=== PATIENT | female | born 1970 | race Caucasian/White ===

== ENCOUNTER 2019-10-12 13:49 | Emergency (ER) | payer OTHER ==
[~2019-10-12] VITALS: Wt 90.7 kg
[2019-10-12 15:11] LABS: BASO % 0.3 % (0.0-1.0); EOS # 0.2 10*3/uL (0.0-0.4); EOS % 1.8 % (1.0-4.0); HEMATOCRIT 40.1 % (37.0-47.0); LYMPH # 2.3 10*3/uL (1.3-4.4); LYMPH % 25.8 % (27.0-41.0); MEAN CELL VOLUME 96.6 fl (81.0-99.0); MEAN CORPUSCULAR HGB CONC 33.2 g/dl (33.0-37.0); MEAN PLATELET VOLUME 9.4 fl (9.6-12.3); MONO # 0.9 10*3/uL (0.1-1.0); MONO % 10.8 % (3.0-9.0); NEUT # 5.3 10*3/uL (2.3-7.9); NEUT % 60.8 % (47.0-73.0); PLATELET COUNT AUTOMATED 286 10*3/uL (130-400); RED BLOOD COUNT 4.15 10*6/uL (4.10-5.10); RED CELL DISTRI WIDTH 13.8 % (0-14.5); WHITE BLOOD COUNT 8.7 10*3/uL (4.8-10.8)
[2019-10-12 15:28] LABS: ALBUMIN 3.3 gm/dl (3.1-4.5); ALKALINE PHOSPHATASE 83 U/L (45-117); BUN 10 mg/dl (7-24); CHLORIDE 106 mmol/L (98-107); CPK 718 U/L (26-192); CREATININE 0.79 mg/dL (0.55-1.02); POTASSIUM 3.9 mmol/L (3.5-5.1); SGOT/AST 33 IU/L (3-35); SGPT/ALT 20 U/L (12-78); SODIUM 137 mmol/L (136-145)
[2019-10-12 15:30] LABS: ACT PARTIAL THROMBO TIME 26.8 SECONDS (20.0-32.1); INTERNATIONAL NORM RATIO 0.9 (2.0-3.5)
[2019-10-12 15:31] LABS: TROPONIN I < 0.015 ng/ml (<0.045)
[2019-10-12 16:28] LABS: BILIRUBIN NEGATIVE (NEGATIVE); BLOOD NEGATIVE (NEGATIVE); CLARITY CLEAR (CLEAR); COLOR YELLOW (YELLOW); GLUCOSE NEGATIVE (NEGATIVE); KETONE NEGATIVE (NEGATIVE); LEUKO ESTERASE NEGATIVE (NEGATIVE); NITRITE NEGATIVE (NEGATIVE); RBC 0-2 rbc/hpf (0-2); SPECIFIC GRAVITY 1.015 (1.005-1.030); UROBILINOGEN 0.2 E.U./dl (0.2-1.0)
[2019-10-12 16:29] LABS: BACTERIA 1+; EPITHELIAL CELLS 41-50
[2019-10-12] MEDS ORDERED: NAPROSYN500 MG PO (19:02)
[2019-10-12] MEDS ORDERED: TYLENOL325 M1 PO (19:02)
[2019-10-12] MEDS ORDERED: ULTRAM50 MG PO (19:02)
[2019-10-12] MEDS ORDERED: POLYSPORIN OINT15 GM T (19:03)
== END 2019-10-12 19:35 | disposition home or self-care (01) ==
LOC: ED 13:49
PROVIDERS: Emergency Medicine
DX: S40.812A Abrasion of left upper arm, initial encounter (principal); S30.811A Abrasion of abdominal wall, initial encounter; S70.212A Abrasion, left hip, initial encounter; S80.212A Abrasion, left knee, initial encounter; T14.8XXA Other injury of unspecified body region, initial encounter; M54.2 Cervicalgia; R07.89 Other chest pain; Z91.040 Latex allergy status; V86.59XA Driver of other special all-terrain or other off-road motor vehicle injured in nontraffic accident, initial encounter; Y93.89 Activity, other specified; Y92.89 Other specified places as the place of occurrence of the external cause; Y99.8 Other external cause status

== ENCOUNTER → 2019-12-31 | Outpatient (CLI) | payer OTHER ==
[~2019-12-31] MED LIST: NAPROSYN500 MG PO; POLYSPORIN OINT15 GM T; TYLENOL325 M1 PO; ULTRAM50 MG PO
== END | disposition home or self-care (01) ==
LOC: LAB 14:12
PROVIDERS: ATTEND Nurse Practitioner
DX: R63.5 Abnormal weight gain (principal); R53.83 Other fatigue; M25.50 Pain in unspecified joint

== ENCOUNTER 2021-12-21 07:44 | Emergency (ER) | payer OTHER ==
[~2021-12-21] VITALS: Ht 236.2 cm; Wt 113.4 kg
[2021-12-21] MEDS ORDERED: ONDANSETRON4 MG SL (10:34)
[2021-12-21] MEDS ORDERED: PREDNISONE50 MG PO (10:34)
== END 2021-12-21 11:05 | disposition home or self-care (01) ==
LOC: ED 07:44
DX: M54.42 Lumbago with sciatica, left side (principal); R51.9 Headache, unspecified; Z79.899 Other long term (current) drug therapy; Z79.2 Long term (current) use of antibiotics; Z98.890 Other specified postprocedural states

== ENCOUNTER 2022-04-13 02:30 | Emergency (ER) | payer OTHER ==
[~2022-04-13] VITALS: Ht 162.5 cm; Wt 108.9 kg
[~2022-04-13 02:30] MED LIST changes: +ALDACTONE25 M1 PO; +ATENOLOL25 MG PO; +HYDROCHLOROTHIA25 M1 PO; +K-TAB20 MEQ PO; +LASIX40 MG PO; +LOW DOSE ASPIRI81 M1 PO; +NORVASC10 MG PO; +OMEPRAZOLE10 MG PO; +ONDANSETRON4 MG SL; +PREDNISONE10 MG PO; +PREDNISONE50 MG PO; +PROTONIX40 MG PO; +SERTRALINE HYDR25 MG PO; +XANAX0.25 MG PO
[2022-04-13 03:11] LABS: BASO % 0.3 % (0.0-1.0); EOS % 0.1 % (1.0-4.0); HEMATOCRIT 39.4 % (37.0-47.0); LYMPH # 4.7 10*3/uL (1.3-4.4); LYMPH % 44.3 % (27.0-41.0); MEAN CORPUSCULAR HGB 33.7 pg (27.0-31.0); MEAN PLATELET VOLUME 10.6 fl (9.6-12.3); MONO # 0.6 10*3/uL (0.1-1.0); MONO % 5.4 % (3.0-9.0); NEUT # 5.2 10*3/uL (2.3-7.9); NEUT % 49.2 % (47.0-73.0); PLATELET COUNT AUTOMATED 258 10*3/uL (130-400); RED BLOOD COUNT 3.98 10*6/uL (4.10-5.10); RED CELL DISTRI WIDTH 15.1 % (0-14.5); WHITE BLOOD COUNT 10.5 10*3/uL (4.8-10.8)
[2022-04-13 03:29] LABS: ALKALINE PHOSPHATASE 105 U/L (46-116); BUN 10 mg/dl (9-23); CHLORIDE 99 mmol/L (98-107); CREATININE 0.81 mg/dL (0.55-1.02); POTASSIUM 3.5 mmol/L (3.4-5.1); SGPT/ALT 21 U/L (10-49); TOTAL PROTEIN 7.8 gm/dL (6.0-8.0)
[2022-04-13] MEDS ORDERED: ZITHROMAX250 MG PO (04:46)
[2022-04-13] MEDS ORDERED: PREDNISONE20 M1 PO (04:46)
== END 2022-04-13 05:05 | disposition home or self-care (01) ==
LOC: ED 02:30
PROVIDERS: Internal Medicine
DX: J06.9 Acute upper respiratory infection, unspecified (principal); Z20.822 Contact with and (suspected) exposure to COVID-19; J20.8 Acute bronchitis due to other specified organisms; Z79.899 Other long term (current) drug therapy; Z79.82 Long term (current) use of aspirin; Z90.49 Acquired absence of other specified parts of digestive tract; Z98.890 Other specified postprocedural states; F17.200 Nicotine dependence, unspecified, uncomplicated

== ENCOUNTER → 2022-04-18 | Outpatient (CLI) | payer OTHER ==
[~2022-04-18] MED LIST changes: +PREDNISONE20 M1 PO; +ZITHROMAX250 MG PO
== END | disposition home or self-care (01) ==
LOC: RESCLI 14:25
PROVIDERS: ATTEND Internal Medicine
DX: I11.0 Hypertensive heart disease with heart failure (principal); I50.30 Unspecified diastolic (congestive) heart failure; F41.1 Generalized anxiety disorder; K21.9 Gastro-esophageal reflux disease without esophagitis; G47.33 Obstructive sleep apnea (adult) (pediatric); F32.1 Major depressive disorder, single episode, moderate; Z90.49 Acquired absence of other specified parts of digestive tract; Z98.890 Other specified postprocedural states; F17.200 Nicotine dependence, unspecified, uncomplicated; Z79.82 Long term (current) use of aspirin; Z79.899 Other long term (current) drug therapy

== ENCOUNTER → 2022-05-30 | Outpatient (CLI) | payer OTHER ==
[2022-05-30 16:26] LABS: BASO # 0.1 10*3/uL (0.0-0.1); BASO % 0.6 % (0.0-1.0); EOS # 0.3 10*3/uL (0.0-0.4); EOS % 2.8 % (1.0-4.0); HEMATOCRIT 42.5 % (37.0-47.0); LYMPH # 2.5 10*3/uL (1.3-4.4); LYMPH % 28.5 % (27.0-41.0); MEAN CELL VOLUME 97.9 fl (81.0-99.0); MEAN CORPUSCULAR HGB 32.9 pg (27.0-31.0); MEAN CORPUSCULAR HGB CONC 33.6 g/dl (33.0-37.0); MEAN PLATELET VOLUME 9.7 fl (9.6-12.3); MONO # 0.7 10*3/uL (0.1-1.0); MONO % 7.5 % (3.0-9.0); NEUT # 5.3 10*3/uL (2.3-7.9); NEUT % 60.3 % (47.0-73.0); PLATELET COUNT AUTOMATED 326 10*3/uL (130-400); RED BLOOD COUNT 4.34 10*6/uL (4.10-5.10); RED CELL DISTRI WIDTH 14.6 % (0-14.5); WHITE BLOOD COUNT 8.9 10*3/uL (4.8-10.8)
[2022-05-30 16:40] LABS: BUN 10 mg/dl (9-23); CHLORIDE 101 mmol/L (98-107); POTASSIUM 3.8 mmol/L (3.4-5.1)
[2022-05-30 16:45] LABS: ALKALINE PHOSPHATASE 105 U/L (46-116); BUN 9 mg/dl (9-23); CHLORIDE 102 mmol/L (98-107); POTASSIUM 3.9 mmol/L (3.4-5.1); SGPT/ALT 12 U/L (10-49); THYROID STIM HORMONE (HS) 2.211 uIU/ml (0.550-4.780); TOTAL PROTEIN 8.1 gm/dL (6.0-8.0)
== END | disposition home or self-care (01) ==
LOC: RESCLI 01:27
PROVIDERS: Internal Medicine; ATTEND Internal Medicine
DX: M47.816 Spondylosis without myelopathy or radiculopathy, lumbar region (principal); M48.061 Spinal stenosis, lumbar region without neurogenic claudication; M54.32 Sciatica, left side; F32.1 Major depressive disorder, single episode, moderate; R10.11 Right upper quadrant pain; I11.0 Hypertensive heart disease with heart failure; I50.30 Unspecified diastolic (congestive) heart failure; F41.9 Anxiety disorder, unspecified; F32.A Depression, unspecified; F10.90 Alcohol use, unspecified, uncomplicated; F17.210 Nicotine dependence, cigarettes, uncomplicated; M25.78 Osteophyte, vertebrae; K21.9 Gastro-esophageal reflux disease without esophagitis; Z90.49 Acquired absence of other specified parts of digestive tract; Z98.890 Other specified postprocedural states; Z79.899 Other long term (current) drug therapy

== ENCOUNTER → 2022-07-03 | Outpatient (CLI) | payer OTHER | END | disposition home or self-care (01) | LOC: RESCLI 14:51 | PROVIDERS: ATTEND Internal Medicine | DX: I11.0 Hypertensive heart disease with heart failure (principal); I50.30 Unspecified diastolic (congestive) heart failure; M54.32 Sciatica, left side; R42 Dizziness and giddiness; F32.1 Major depressive disorder, single episode, moderate; K21.9 Gastro-esophageal reflux disease without esophagitis; F17.200 Nicotine dependence, unspecified, uncomplicated; F10.90 Alcohol use, unspecified, uncomplicated; Z90.49 Acquired absence of other specified parts of digestive tract; Z98.890 Other specified postprocedural states; Z79.82 Long term (current) use of aspirin; Z79.899 Other long term (current) drug therapy ==

== ENCOUNTER → 2022-08-29 | Outpatient (CLI) | payer OTHER | END | disposition home or self-care (01) | LOC: RESCLI 01:15 | PROVIDERS: ATTEND Internal Medicine | DX: I11.0 Hypertensive heart disease with heart failure (principal); I50.30 Unspecified diastolic (congestive) heart failure; K21.9 Gastro-esophageal reflux disease without esophagitis; R11.0 Nausea; M54.32 Sciatica, left side; F32.1 Major depressive disorder, single episode, moderate; M53.86 Other specified dorsopathies, lumbar region; F17.210 Nicotine dependence, cigarettes, uncomplicated; Z98.890 Other specified postprocedural states; F10.90 Alcohol use, unspecified, uncomplicated; Z88.8 Allergy status to other drugs, medicaments and biological substances; Z79.899 Other long term (current) drug therapy ==

== ENCOUNTER 2023-01-18 13:27 | Emergency (ER) | payer OTHER ==
[~2023-01-18] VITALS: Wt 122.5 kg
[2023-01-18] MEDS ORDERED: PERCOCET 5-3251 EACH PO (15:54)
== END 2023-01-18 15:57 | disposition home or self-care (01) ==
LOC: ED 13:27
DX: S70.01XA Contusion of right hip, initial encounter (principal); I11.0 Hypertensive heart disease with heart failure; I50.9 Heart failure, unspecified; Z90.49 Acquired absence of other specified parts of digestive tract; Z98.890 Other specified postprocedural states; F17.200 Nicotine dependence, unspecified, uncomplicated; W01.0XXA Fall on same level from slipping, tripping and stumbling without subsequent striking against object, initial encounter; Y93.89 Activity, other specified; Y92.89 Other specified places as the place of occurrence of the external cause; Y99.8 Other external cause status

== ENCOUNTER 2023-01-21 14:16 | Emergency (ER) | payer OTHER ==
[~2023-01-21] VITALS: Ht 160 cm; Wt 117.9 kg
[~2023-01-21 14:16] MED LIST changes: +PERCOCET 5-3251 EACH PO
[2023-01-21] MEDS ORDERED: AUVELITY ER 451 EACH PO (14:25)
[2023-01-21] MEDS ORDERED: FUROSEMIDE40 MG PO (14:27)
[2023-01-21] MEDS ORDERED: GABAPENTIN600 MG PO (14:29)
[2023-01-21] MEDS ORDERED: METHOCARBAMOL750 M1 PO (14:29)
[2023-01-21] MEDS ORDERED: MECLIZINE HYD12.5 MG PO (14:30)
[2023-01-21] MEDS ORDERED: TRAMADOL HCL50 MG PO (15:49)
== END 2023-01-21 15:54 | disposition home or self-care (01) ==
LOC: ED 14:16
DX: S70.01XA Contusion of right hip, initial encounter (principal); I11.0 Hypertensive heart disease with heart failure; I50.9 Heart failure, unspecified; Z90.49 Acquired absence of other specified parts of digestive tract; Z98.890 Other specified postprocedural states; F17.200 Nicotine dependence, unspecified, uncomplicated; W01.0XXA Fall on same level from slipping, tripping and stumbling without subsequent striking against object, initial encounter; Y93.89 Activity, other specified; Y92.89 Other specified places as the place of occurrence of the external cause; Y99.8 Other external cause status

== ENCOUNTER → 2023-02-15 | Outpatient (CLI) | payer OTHER ==
[~2023-02-15] MED LIST changes: +AUVELITY ER 451 EACH PO; +FUROSEMIDE40 MG PO; +GABAPENTIN600 MG PO; +HORIZANT600 M1 PO; +MECLIZINE HYD12.5 MG PO; +METHOCARBAMOL750 M1 PO; +OXYCODONE-ACET1 EACH PO; +Oscal,Oyster S500 MG PO; +TRAMADOL HCL50 MG PO; +VITAMIN D350 MCG PO
== END | disposition home or self-care (01) ==
LOC: ORTHO 00:44
PROVIDERS: ATTEND Orthopaedic Surgery
DX: M84.359D Stress fracture, hip, unspecified, subsequent encounter for fracture with routine healing (principal)

== ENCOUNTER → 2023-02-18 | Outpatient (CLI) | payer OTHER | END | disposition home or self-care (01) | LOC: ORTHO 08:03 | PROVIDERS: ATTEND Orthopaedic Surgery | DX: M19.011 Primary osteoarthritis, right shoulder (principal) ==

== ENCOUNTER → 2023-03-15 | Outpatient (CLI) | payer OTHER | END | disposition home or self-care (01) | LOC: ORTHO 03:28 | PROVIDERS: ATTEND Orthopaedic Surgery | DX: S72.141D Displaced intertrochanteric fracture of right femur, subsequent encounter for closed fracture with routine healing (principal); X58.XXXD Exposure to other specified factors, subsequent encounter ==

== ENCOUNTER → 2023-04-01 | Outpatient (CLI) | payer OTHER | END | disposition home or self-care (01) | LOC: ORTHO 04:26 | PROVIDERS: ATTEND Orthopaedic Surgery | DX: M84.351D Stress fracture, right femur, subsequent encounter for fracture with routine healing (principal) ==

== ENCOUNTER 2023-04-16 08:17 | Emergency (ER) | payer OTHER ==
[~2023-04-16] VITALS: Ht 160 cm; Wt 113.4 kg
[2023-04-16] MEDS ORDERED: CEPHALEXIN500 M1 PO (12:52)
[2023-04-16] MEDS ORDERED: SEPTDS PO (12:52)
[2023-04-16] MEDS ORDERED: HYDROCODONE-AC1 EAC1 PO (12:53)
== END 2023-04-16 12:55 | disposition home or self-care (01) ==
LOC: ED 08:17
DX: L02.412 Cutaneous abscess of left axilla (principal); F17.210 Nicotine dependence, cigarettes, uncomplicated; Z79.899 Other long term (current) drug therapy; Z79.82 Long term (current) use of aspirin; Z98.51 Tubal ligation status; Z90.49 Acquired absence of other specified parts of digestive tract

== ENCOUNTER → 2023-05-08 | Outpatient (CLI) | payer OTHER ==
[~2023-05-08] MED LIST changes: +CEPHALEXIN500 M1 PO; +HYDROCODONE-AC1 EAC1 PO; +SEPTDS PO
== END | disposition home or self-care (01) ==
LOC: ORTHO 01:21
PROVIDERS: ATTEND Orthopaedic Surgery
DX: M84.35 Stress fracture, pelvis and femur (principal); M25.862 Other specified joint disorders, left knee; X58.XXXD Exposure to other specified factors, subsequent encounter

== ENCOUNTER → 2023-05-17 | Outpatient (CLI) | payer OTHER ==
[~2023-05-17] MED LIST changes: +Technetium Tc 99M Medronate 1 KIT KIT IV SCH
== END | disposition home or self-care (01) ==
LOC: NM 00:31
PROVIDERS: ATTEND Orthopaedic Surgery
DX: M84.352A Stress fracture, left femur, initial encounter for fracture (principal); M81.0 Age-related osteoporosis without current pathological fracture; I10 Essential (primary) hypertension; K58.9 Irritable bowel syndrome, unspecified; X58.XXXA Exposure to other specified factors, initial encounter; Y93.89 Activity, other specified; Y92.89 Other specified places as the place of occurrence of the external cause; Y99.8 Other external cause status

== ENCOUNTER 2023-11-17 17:29 | Emergency (ER) | payer OTHER ==
[~2023-11-17] VITALS: Ht 160 cm; Wt 133.8 kg
[~2023-11-17 17:29] MED LIST changes: -Technetium Tc 99M Medronate 1 KIT KIT IV SCH
[2023-11-17] MEDS ORDERED: Ondansetron Hydrochloride 4 MG/2 ML VIAL IV ONE (17:35)
[2023-11-17] MEDS ORDERED: MORPHINE Sulfate 2 MG/ML SYR IV ONE (17:35)
[2023-11-17] MEDS ORDERED: Meclizine Hydrochloride 25 MG TAB PO ONE (17:35)
[2023-11-17 17:49] LABS: BASO # 0.1 10*3/uL (0.0-0.1); BASO % 0.5 % (0.0-1.0); EOS # 0.2 10*3/uL (0.0-0.4); EOS % 1.6 % (1.0-4.0); HEMATOCRIT 37.2 % (37.0-47.0); LYMPH # 3.6 10*3/uL (1.3-4.4); LYMPH % 31.5 % (27.0-41.0); MEAN CELL VOLUME 96.6 fl (81.0-99.0); MEAN CORPUSCULAR HGB 32.5 pg (27.0-31.0); MEAN CORPUSCULAR HGB CONC 33.6 g/dl (33.0-37.0); MEAN PLATELET VOLUME 9.4 fl (9.6-12.3); MONO % 8.8 % (3.0-9.0); NEUT # 6.6 10*3/uL (2.3-7.9); NEUT % 56.8 % (47.0-73.0); PLATELET COUNT AUTOMATED 279 10*3/uL (130-400); RED BLOOD COUNT 3.85 10*6/uL (4.10-5.10); RED CELL DISTRI WIDTH 16.4 % (0-14.5); WHITE BLOOD COUNT 11.5 10*3/uL (4.8-10.8)
[2023-11-17 18:03] LABS: POTASSIUM 3.3 mmol/L (3.4-5.1)
[2023-11-17] MEDS ORDERED: SODIUM CHLORIDE 0.9% 500 ML IV ONE (18:10)
[2023-11-17] MEDS ORDERED: POTASSIUM CHLORIDE 20 MEQ TAB PO ONE (18:30)
== END 2023-11-17 18:32 | disposition home or self-care (01) ==
LOC: ED 17:29
PROVIDERS: Emergency Medicine
DX: R55 Syncope and collapse (principal); M25.512 Pain in left shoulder; M54.2 Cervicalgia; E86.0 Dehydration; E87.6 Hypokalemia; R42 Dizziness and giddiness; I11.0 Hypertensive heart disease with heart failure; I50.9 Heart failure, unspecified; E78.5 Hyperlipidemia, unspecified; F32.A Depression, unspecified; F17.210 Nicotine dependence, cigarettes, uncomplicated; Z90.49 Acquired absence of other specified parts of digestive tract; Z98.51 Tubal ligation status; Z98.890 Other specified postprocedural states

== ENCOUNTER 2023-12-01 07:14 | Emergency (ER) | payer OTHER ==
[~2023-12-01] VITALS: Ht 160 cm; Wt 136.1 kg
[2023-12-01] MEDS ORDERED: PREDNISONE20 M1 PO (08:31)
== END 2023-12-01 08:37 | disposition home or self-care (01) ==
LOC: ED 07:14
DX: M54.42 Lumbago with sciatica, left side (principal); M79.605 Pain in left leg; J44.9 Chronic obstructive pulmonary disease, unspecified; I11.0 Hypertensive heart disease with heart failure; I50.9 Heart failure, unspecified; F32.A Depression, unspecified; F17.200 Nicotine dependence, unspecified, uncomplicated; Z90.49 Acquired absence of other specified parts of digestive tract; Z98.51 Tubal ligation status; Z98.890 Other specified postprocedural states

== ENCOUNTER 2024-12-15 10:50 | Emergency (ER) | payer OTHER ==
[2024-12-15] MEDS ORDERED: PREDNISONE20 M1 PO (11:20)
[2024-12-15] MEDS ORDERED: Acetaminophen/Oxycodone 5 MG/325 MG TABLET PO ONE (11:25)
[2024-12-15] MEDS ORDERED: Water, Sterile 10 ML VIAL ONE (11:52)
== END 2024-12-15 11:35 | disposition home or self-care (01) ==
LOC: ED 10:50
DX: M54.42 Lumbago with sciatica, left side (principal); I11.0 Hypertensive heart disease with heart failure; I50.9 Heart failure, unspecified; F32.A Depression, unspecified; E66.01 Morbid (severe) obesity due to excess calories; F17.210 Nicotine dependence, cigarettes, uncomplicated; Z90.49 Acquired absence of other specified parts of digestive tract; Z79.899 Other long term (current) drug therapy; Z79.82 Long term (current) use of aspirin; Z68.30 Body mass index [BMI] 30.0-30.9, adult